=== PATIENT | female | born 1975 | race Caucasian/White ===

== ENCOUNTER → 2016-11-02 | Outpatient (CLI) | payer MEDICAID ==
[~2016-11-02] MED LIST: INSU3INS3 SQ; LISI-625 PO; PROC-14 PO
--- NOTE | 2016-11-02 16:11 | DI ---
Indication: ITS.REASON: R10.32 LEFT LOWER QUAD PAIN PROCEDURE: US PELVIC NON OB W/TRANS VAG: Encounter: Initial Comparison: None Technique: TRANSABDOMINAL AND TRANSVAGINAL COMPLETE PELVIC ULTRASOUND: FINDINGS: The uterus is normal in size and shape measuring 10.7 cm in length x 3.7 cm in AP dimension x 4.7 cm in transverse dimension. The endometrium is homogeneous without focal abnormality, measuring 3.5 mm in thickness. No free fluid. Neither the left nor the right ovary is identifiable view of the transabdominal or transvaginal route. No definite adnexal mass. IMPRESSION: No significant uterine abnormality. Unable to identify either the left or the right ovary. No definite adnexal mass lesion. .
== END ==
LOC: IMA 13:36
PROVIDERS: ATTEND Nurse Practitioner Family
DX: R10.32 Left lower quadrant pain (principal)